=== PATIENT | female | born 1990 | race African-American/Black ===

== ENCOUNTER 2017-04-02 19:49 | Emergency (ER) | payer OTHER ==
[~2017-04-02] VITALS: Ht 172.7 cm; Wt 124.7 kg
[2017-04-02 20:29] LABS: BILIRUBIN,URINE NEGATIVE (NEGATIVE); KETONES,URINE NEGATIVE (NEGATIVE); LEUKOCYTE ESTERASE ,URINE 1+ (NEGATIVE); NITRITE,URINE NEGATIVE (NEGATIVE); PH,URINE 7 (5-9); PROTEIN,URINE NEGATIVE (NEGATIVE); UROBILINOGEN,URINE NORMAL (NORMAL)
[2017-04-02 20:36] LABS: WBC,URINE 0-2 /HPF
[2017-04-02] MEDS ORDERED: NAPR500T4 PO (20:59)
[2017-04-02] MEDS ORDERED: CYCL10TA9 PO (20:59)
--- NOTE | 2017-04-02 20:59 | ED Back Pain ---
General Chief Complaint: Back Problems Stated Complaint: LOWER BACK PAIN Nursing Triage Note: RIGHT LOWER BACK PAIN Nursing Sepsis Screen: No Definite Risk Source of Information: Patient History of Present Illness Time Seen by Provider: 20:24 Initial Comments C/O LOWER BACK PAIN X 1 1/2 WEEKS GOT BETTER, THEN YESTERDAY SHE SNEEZED AND PAIN HAS PROGRESSIVELY GOTTEN WORSE C/O SPASMS TO LOWER BACK, MOSTLY ON THE RIGHT SYMPTOMS WORSE WITH MOVEMENTS, SNEEZING, TAKING A DEEP BREATH NO RADIATION OF PAIN NO PARESTHESIAS OR MOTOR DEFICITS NO URINARY SYMPTOMS NO FEVER NO NAUSEA/VOMITING NO SHORTNESS OF BREATH NO HISTORY OF SIMILAR LMP 03/18/17. NORMAL. NO CONTROL Other Comments PCP: MARANDA-ARTUR Allergies and Home Medications Allergies Coded Allergies: No Known Drug Allergies (Unverified , 04/02/17) Home Medications Cyclobenzaprine HCl 10 Mg Tablet, 10 MG PO Q8H, #15 Prescribed by: EVIE HARDING on 04/02/172058 Naproxen 500 Mg Tablet, 500 MG PO BID, #20 Prescribed by: EVIE HARDING on 04/02/172058 Constitutional: no symptoms reported Respiratory: no symptoms reported Cardiovascular: no symptoms reported Gastrointestinal: no symptoms reported, No abdominal pain, No nausea, No vomiting Genitourinary: no symptoms reported Musculoskeletal: see HPI, back pain Skin: no symptoms reported Psychiatric/Neurological: No Symptoms Reported Past [id number] Hx Patient Social History Alcohol Use: Occasionally Uses (ONCE A MONTH) Number of Drinks Today: 0 Alcohol Beverage of Choice: Wine Recreational Drug Use: Yes (THC) Drug of Choice: CANNIBUS Smoking Status: Never a Smoker 2nd Hand Smoke Exposure: No Recent Foreign Travel: No Contact w/Someone Who Travel: No Recent Infectious Disease Expo: No Recent Hopitalizations: No Immunizations Up To Date Tetanus Booster (TDap): Less than 5yrs PED Vaccines UTD: Yes Seasonal Allergies Seasonal Allergies: Yes Surgeries History of Surgeries: No Respiratory History of Respiratory Disorde: No Cardiovascular History of Cardiac Disorders: No Neurological History of Neurological Disord: No Reproductive System : No Last Menstrual Period: Mar 18, 2017 Female Reproductive Disorders: Denies Genitourinary History of Genitourinary Disor: No Gastrointestinal History of Gastrointestinal Di: No Musculoskeletal History of Musculoskeletal Dis: No Endocrine History of Endocrine Disorders: No HEENT History of HEENT Disorders: No Cancer History of Cancer: No Did You Recieve Any Treatments: No Psychosocial History of Psychiatric Problem: Yes (SUPPOSED TO BE ON ZOLOFT, BUT SELF DC'D) Behavioral Health Disorders: Anxiety, Depression Integumentary History of Skin or Integumenta: No Blood Transfusions History of Blood Disorders: No Physical Exam Vital Signs Vital Sign - Last 12Hours 04/02/17 20:01 Temp 98.6 Pulse 98 Resp 18 B/P (MAP) 126/88 Pulse Ox 98 O2 Delivery Room Air Capillary Refill : Less Than 3 Seconds General Appearance: No Apparent Distress, WD/WN Neck: Full Range of Motion, Normal Inspection, Non Tender, Supple Cardiovascular: Regular Rate, Rhythm, No Edema, No JVD, No Murmur, Normal Peripheral Pulses Respiratory: Chest Non Tender, Normal Breath Sounds, No Accessory Muscle Use, No Respiratory Distress Gastrointestinal: Non Tender, Soft Back: CVA Tenderness (R), Decreased Range of Motion, Muscle Spasm, No Vertebral Tenderness, Other (CTR'S INTACT; NEGATIVE STRAIGHT LEG RAISING) Extremity: Normal Capillary Refill, Normal Inspection, Normal Range of Motion, Non Tender, No Calf Tenderness, No Pedal Edema Neurologic/Psychiatric: Alert, Oriented x3, No Motor/Sensory Deficits, Normal 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, 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 Norm as Tested Skin: Normal Color, Warm/Dry, No Rash Progress/Results/Core Measures Results/Orders Lab Results Laboratory Tests Test 04/02/17 20:00 Range/Units Urine Color YELLOW Urine Clarity CLEAR Urine pH 7 5-9 Urine Specific Fa[place] 1.010 L 1.016-1.022 Urine Protein NEGATIVE NEGATIVE Urine Glucose (UA) NEGATIVE NEGATIVE Urine Ketones NEGATIVE NEGATIVE Urine Nitrite NEGATIVE NEGATIVE Urine Bilirubin NEGATIVE NEGATIVE Urine Urobilinogen NORMAL NORMAL MG/DL Urine Leukocyte Esterase 1+ H NEGATIVE Urine RBC (Auto) NEGATIVE NEGATIVE Urine RBC NONE /HPF Urine WBC 0-2 /HPF Urine Squamous Epithelial Cells 2-5 /HPF Urine Crystals NONE /LPF Urine Bacteria NONE /HPF Urine Casts NONE /LPF Urine Mucus NEGATIVE /LPF Urine Culture Indicated NO Urine Test NEGATIVE NEGATIVE Urine Opiates Screen NEGATIVE NEGATIVE Urine Oxycodone Screen NEGATIVE NEGATIVE Urine Methadone Screen NEGATIVE NEGATIVE Urine Propoxyphene Screen NEGATIVE NEGATIVE Urine Barbiturates Screen NEGATIVE NEGATIVE Ur Tricyclic Antidepressants Screen NEGATIVE NEGATIVE Urine Phencyclidine Screen NEGATIVE NEGATIVE Urine Amphetamines Screen NEGATIVE NEGATIVE Urine Methamphetamines Screen NEGATIVE NEGATIVE Urine Benzodiazepines Screen NEGATIVE NEGATIVE Urine Cocaine Screen NEGATIVE NEGATIVE Urine Cannabinoids Screen POSITIVE H NEGATIVE My Orders Orders - EVIE HARDING DO Drug Screen Stat (Urine) (04/02/17 20:24) Hcg,Qualitative Urine (04/02/17 20:24) Ua Culture If Indicated (04/02/17 20:24) Ketorolac Injection (Toradol Injection) (04/02/17 21:00) Orphenadrine Injection (Norflex Injectio (04/02/17 21:00) Vital Signs/I&O Vital Sign - Last 12Hours 04/02/17 20:01 Temp 98.6 Pulse 98 Resp 18 B/P (MAP) 126/88 Pulse Ox 98 O2 Delivery Room Air Blood Pressure Mean: 101 Departure Impression Impression: Primary Impression: Low back pain Disposition: HOME, SELF-CARE Condition: Stable Departure-Patient Inst. Referrals: [facility] Patient Instructions: Low Back Pain (DC), Lumbar Muscle Strain (DC) Add. Discharge Instructions: MOIST HEAT TO SORE AREAS AT 20 MINUTE INTERVALS NO LIFTING OVER 5 LBS, NO TWISTING OR BENDING AT WAIST X 1 WEEK FOLLOW UP WITH [facility] IN 3-4 DAYS IF NO BETTER All discharge instructions reviewed with patient and/or family. Voiced understanding. Scripts Naproxen (Naproxen) 500 Mg Tablet 500 MG PO BID, #20 TAB Prov: EVIE HARDING DO 04/02/17 Cyclobenzaprine HCl (Cyclobenzaprine HCl) 10 Mg Tablet 10 MG PO Q8H, #15 TAB Prov: EVIE HARDING DO 04/02/17 EVIE HARDNIG DO Apr 02, 2017 20:59
[2017-04-02] MEDS ORDERED: ORPHENADRINE 60 MG/2 ML (NORFLEX) AMP IM ONE (21:00)
[2017-04-02] MEDS ORDERED: KETOROLAC 60 MG/2 ML VIAL IM ONE (21:00)
[2017-04-02 21:08] VITALS: BP 124/78
== END 2017-04-02 21:08 | disposition home or self-care (01) ==
LOC: ER 19:51
DX: M54.5 Low back pain (principal); F41.9 Anxiety disorder, unspecified; F32.9 Major depressive disorder, single episode, unspecified; F12.90 Cannabis use, unspecified, uncomplicated
CPT/HCPCS: 80306; 81000; 84703; 99284